=== PATIENT | female | born 1955 | race Caucasian/White ===

== ENCOUNTER 2016-09-22 08:15 | Emergency (ER) | payer OTHER ==
[~2016-09-22] VITALS: Ht 157.5 cm; Wt 73.0 kg
[~2016-09-22 08:15] MED LIST: atorvastin; levothyroxine; osteoporosis med
[2016-09-22 08:20] VITALS: Ht 157.5 cm; Wt 73.0 kg
[2016-09-22] MEDS ORDERED: CEPH-443 PO (08:40)
[2016-09-22] MEDS ORDERED: TRAM50TA2 PO (08:40)
--- NOTE | 2016-09-22 09:55 | ERD ---
ER Documentation Chief Complaint Date/Time DATE: 09/22/16 TIME: 09:53 Chief Complaint LEFT PALM PAIN RADIATING TO FOREARM SECONDARY TO WART HPI 61-year-old female presents with painful warts to the left hand that she has had for several years now. She states that she did try to see a work adjustment instructor for the shaved it off, it was only 1 treatment and the growth had returned. Over the last 2 days she states that the pain is radiating to her forearm, she also states that there has been some pus draining from it. No fevers or chills. Denies trauma. ROS All systems reviewed and are negative except as per history of present illness. Medications Home Meds Active Scripts Cephalexin* (Keflex*) 500 Mg Capsule, 500 MG PO QID for 7 Days, CAP Prov:KRYS BERUMEN PA-C 09/22/16 Tramadol HCl (Tramadol HCl) 50 Mg Tablet, 50 MG PO Q4 Y for PAIN, #20 TAB Prov:KRYS BERUMEN PA-C 09/22/16 Reported Medications [osteoporosis med] No Conflict Check 01/17/16 [levothyroxine] No Conflict Check 01/17/16 [atorvastin] No Conflict Check 01/17/16 Allergies Allergies: Coded Allergies: No Known Drug Allergy (Verified Allergy, Unknown, 01/17/16) PMhx/Soc History of Surgery: Yes (myomectomy) Anesthesia Reaction: No Hx Neurological Disorder: No Hx Respiratory Disorders: No Hx Psychiatric Problems: No Hx Miscellaneous Medical Probl: No Hx Alcohol Use: Yes Hx Substance Use: No Hx Tobacco Use: No Smoking Status: Never smoker Physical Exam Vitals Vital Signs Date Time Temp Pulse Resp B/P Pulse Ox O2 Delivery O2 Flow Rate FiO2 09/22/16 08:20 98.0 68 18 140/67 98 Physical Exam General: Well-developed, well-nourished. The patient appears in no acute distress. HEENT: Head is normocephalic, atraumatic. No scleral icterus. Neck: Supple. Nontender. Lungs: Clear to auscultation. Normal air movement. Heart: Regular rate and rhythm. S1 and S2 are normal. No murmurs, gallops, or rubs. Abdomen: Nondistended. Extremities: No clubbing or cyanosis. Moving extremities x 4. No weakness. Neurologic: Alert and oriented 3. No focal deficits. Normal speech and gait. Skin: 2 cm wart on the left ulnar aspect of the palm. There is some serosanguineous drainage. No fluctuance, no bony deformities. Capillary refill less than 2 seconds. Procedures/MDM 61-year-old female presents with a wart to her left palm, with associated pain. She states that there is been some drainage, and will be treated for soft tissue infection. I spoke with patient, she was informed that the wart will probably need multiple treatments from a work adjustment instructor including a shave removal. She will be given pain medication and was advised to recheck with a work adjustment instructor. Departure Diagnosis: Primary Impression: Wart Condition: Good Patient Instructions: Warts, Non-Genital Additional Instructions: Llame al doctor MAANA y yudelka florencio GURMEET PARA DENTRO DE 1-2 CAVAZOS.Dgale a la secretaria que nosotros le instruimos hacer esta gurmeet.Avise o llame si long condicin se empeora antes de la gurmeet. Regresa aqui si peor o no mejor. KRYS BERUMEN PA-C Sep 22, 2016 09:55
== END 2016-09-22 08:57 | disposition home or self-care (01) ==
LOC: FTE 08:15
DX: B07.9 Viral wart, unspecified (principal); E03.9 Hypothyroidism, unspecified
CPT/HCPCS: 99284

== ENCOUNTER 2016-10-09 06:08 | Day surgery (SDC) | payer OTHER ==
[~2016-10-09] VITALS: Ht 162.6 cm; Wt 73.1 kg
[2016-10-09] VITALS (10 sets, daily range): BP systolic 111–162; BP diastolic 53–72; PULSE 60–90; RESP 12–18; Ht 162.6 cm; Wt 73.1 kg
[~2016-10-09 06:08] MED LIST changes: +CEPH-443 PO; +TRAM50TA2 PO
[2016-10-09] MEDS ORDERED: CEFAZOLIN 1 GM/50 ML (PMX) 50 ML IVPB ONE (06:30)
[2016-10-09] MEDS ORDERED: SOD CHLORIDE 0.9% 1,000 ML IV SCH (06:30)
--- NOTE | 2016-10-09 07:20 | RADRPT ---
PROCEDURE: XR Chest AP portable CLINICAL INDICATION: Preop TECHNIQUE: An AP portable radiograph of the chest was submitted. COMPARISON: 04/23/2009 FINDINGS: Support Hardware: None Cardiovascular: The cardiovascular silhouette appears unremarkable the aorta appears somewhat tortuo us. Lung Marie: The lung marie appear clear with no nodule, alveolar infiltrate, or interstitial promi nence evident. Pleural Spaces: No pneumothorax or pleural effusion is identified. Osseous Structures: Mild diffuse degenerative spine changes are again noted. Soft Tissues: The soft tissues appear generous. IMPRESSION: 1. The foci of discoid atelectasis seen on the previous study have resolved and the lung marie and pleural spaces are now clear. 2. Aortic tortuosity. Physician Gia Date Time Electronically viewed and signed by Jessica Chavez Physician on 10/09/2016 07:19 /
[2016-10-09] MEDS ORDERED: ALEN70TA30 PO (07:22)
[2016-10-09] MEDS ORDERED: OMEGA 3 PO (07:22)
[2016-10-09] MEDS ORDERED: OMEP20CA16 PO (07:22)
[2016-10-09] MEDS ORDERED: LIDOCAINE 1%/EPI (MDV) 20 ML INJ ONE (08:02)
[2016-10-09] MEDS ORDERED: LIDOCAINE 1%/EPI 30 ML INJ INJ ONE (08:30)
[2016-10-09] MEDS ORDERED: MIDAZOLAM 1 MG/ML 2 ML INJ ONE (08:37)
[2016-10-09] MEDS ORDERED: PROPOFOL 20 ML ONE (08:37)
[2016-10-09] MEDS ORDERED: LIDOCAINE 1% (MDV) 20 ML INJ ONE (08:37)
[2016-10-09] MEDS ORDERED: ONDANSETRON 4 MG INJ ONE (08:47)
[2016-10-09] MEDS ORDERED: DEXAMETHASONE 4 MG/ML 1 ML INJ ONE (08:47)
[2016-10-09] MEDS ORDERED: CEFAZOLIN 1 GM INJ ONE (08:47)
[2016-10-09] MEDS ORDERED: FAMOTIDINE 20 MG INJ ONE (08:47)
[2016-10-09] MEDS ORDERED: KETOROLAC 30 MG INJ ONE (08:50)
[2016-10-09] MEDS ORDERED: FENTAnyl 50 MCG/ML VIAL ONE (08:52)
[2016-10-09] MEDS ORDERED: DIPHENHYDRAMINE 50 MG INJ IV PRN (09:30)
[2016-10-09] MEDS ORDERED: HYDROmorphONE (0.2 MG/ML) 10ML SYG IV PRN ×2 (09:30)
[2016-10-09] MEDS ORDERED: PROCHLORPERAZINE 10 MG INJ IV PRN (09:30)
[2016-10-09] MEDS ORDERED: MEPERIDINE 25 MG INJ IV PRN (09:30)
--- NOTE | 2016-10-09 09:45 | OPR ---
DATE OF OPERATION: 10/09/2016 PREOPERATIVE DIAGNOSIS: Exophytic mass at the palmar surface left hand at the base of the little finger. POSTOPERATIVE DIAGNOSIS: Exophytic mass at the palmar surface left hand at the base of the little finger. PROCEDURE: Excision of exophytic mass palmar surface of the left hand with local skin flap advancement closure. ANESTHESIA: General. ANESTHESIOLOGIST: Greg Hammonds DO SURGEON: Santana Omer MD ASSISTANT ACCOUNTING MANAGER: Dave Mchugh MD INDICATIONS FOR PROCEDURE: The patient is a 61-year-old female states she had the mass resected approximately 8 months ago by a grain and yeast plants supervisor; however, it has recurred and increased in size. 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 She was counseled as to the risks versus benefits of wide excision. She consented and was scheduled for surgery. DESCRIPTION OF PROCEDURE: The patient was brought to the operating theater, placed under general anesthesia. The left upper extremity was prepped and draped in the usual sterile fashion. Previously placed tourniquet was then inflated to a pressure of approximately 200 mmHg. An elliptical excision of the mass then took place using a 10 blade scalpel. The specimen was elevated, transected from the underlying subcutaneous fat pad removed and sent for pathologic analysis. The tourniquet was then let down and the residual bleeding was controlled with cautery. Due to the size of the defect, decision was made to mobilize proximal and distal skin flaps. This was done using sharp dissection. The flaps were then rotated together and the incision was closed with multiple 2-0 nylon sutures in interrupted fashion. The patient tolerated procedure well. Estimated blood loss was 5 mL. Total tourniquet time was 5 minutes. There were no complications. Dictated By: ASNTANA OMER MD TL/NTS Conf#: [id number] DID#: [id number] CC: JUAN JOSE MCHUGH MD;*EndCC* MTDD
--- NOTE | 2016-10-09 16:41 | RADRPT ---
Vent Rate: 70 bpm RR Interval: 0 msec TN Interval: 162 msec QRS Duration: 92 msec QT Interval: 420 msec QTC Interval: 453 msec P-R-T [place]: 39 - 8 - 37 degrees Normal sinus rhythm Normal ECG Electronically Signed By: Jose Miguel Dixon [id number]
== END 2016-10-09 11:19 | disposition home or self-care (01) ==
LOC: SDS 06:08
PROVIDERS: ATTEND Surgery Surgical Oncology
DX: C44.629 Squamous cell carcinoma of skin of left upper limb, including shoulder (principal); E03.9 Hypothyroidism, unspecified
CPT/HCPCS: 14040; 71010; 88307; 93005; J0690; J1100; J1170; J1885; J2250; J2405; J3010; Z7512; Z7610

== ENCOUNTER 2018-11-21 10:41 | Emergency (ER) | payer OTHER ==
[~2018-11-21] VITALS: Ht 160 cm; Wt 72.4 kg
[~2018-11-21 10:41] MED LIST changes: +ALEN70TA5 PO; -CEPH-443 PO; +OMEGA 3 PO; +OMEP20CA16 PO; -osteoporosis med
[2018-11-21 10:51] VITALS: Ht 160 cm; Wt 72.4 kg
[2018-11-21] MEDS ORDERED: KETOROLAC 60 MG INJ IM STA (11:11)
[2018-11-21] MEDS ORDERED: NAPR-985 PO (13:04)
[2018-11-21 13:18] VITALS: BP 122/69; PULSE 78; RESP 18
--- NOTE | 2018-11-21 13:58 | ERD ---
ER Documentation Chief Complaint Chief Complaint PELVIC PAIN & LOWER BACK PAIN X3 DAYS HPI 63-year-old female presenting with pelvic pain and lower back pain x3 days. Patient states she had this happen before that resolved on its own. Patient has worse pain with movement. Has not taken medications for symptoms. Medical history is hypercholesterolemia hypothyroidism. NKDA. Surgical history: molar removals. Social history denies ROS All systems reviewed and are negative except as per history of present illness. Medications Home Meds Active Scripts Naproxen* (Naprosyn*) 500 Mg Tablet, 500 MG PO BID PRN for PAIN AND/OR INFLAMMATION, #30 TAB Prov:YORDY GARCIAS PA-C 11/21/18 Tramadol HCl (Tramadol HCl) 50 Mg Tablet, 50 MG PO Q4 PRN for PAIN, #20 TAB Prov:KRYS BERUMEN PA-C 09/22/16 Reported Medications Omeprazole* (Omeprazole*) 20 Mg Capsule.dr, 20 MG PO DAILY, #30 CAP 10/09/16 [[place] 3] No Conflict Check, 1 CAP PO DAILY 10/09/16 Alendronate Sodium* (Fosamax*) 70 Mg Tablet, 70 MG PO Q7D, #4 TAB 10/09/16 [levothyroxine] No Conflict Check 01/17/16 [atorvastin] No Conflict Check 01/17/16 Allergies Allergies: Coded Allergies: No Known Drug Allergy (Verified Allergy, Unknown, 10/09/16) PMhx/Soc History of Surgery: Yes (UTERINE CONIZATION) Anesthesia Reaction: No Hx Neurological Disorder: No Hx Respiratory Disorders: Yes (PNA) Hx Cardiac Disorders: Yes (HLD) Hx Psychiatric Problems: No Hx Miscellaneous Medical Probl: Yes (thyroid problem,fatty liver,osteoporosis) Hx Alcohol Use: No Hx Substance Use: No Hx Tobacco Use: No Smoking Status: Never smoker FmHx Family History: No diabetes, No coronary disease, No other Physical Exam Vitals Vital Signs Date Temp Pulse Resp B/P (MAP) Pulse Ox O2 O2 Flow FiO2 Time Delivery Rate 11/21/18 98.1 78 18 122/69 98 Room Air 13:18 (86) 11/21/18 97.8 72 18 127/67 97 10:51 (87) Physical Exam GENERAL: The patient is well-appearing, well-nourished, in no acute distress CHEST: Clear to auscultation bilaterally. There are no rales, wheezes or rhonchi. HEART: Regular rate and rhythm. No murmurs, clicks, rubs or gallops. ABDOMEN: Normal active bowel sounds. No distention. No organomegaly. Tender to palpation the epigastric region with no rebound tenderness. BACK: No midline or flank tenderness. EXTREMITIES: Equal pulses bilaterally. There is no peripheral clubbing, cyanosis or edema. No focal swelling or erythema. Full range of motion. Grossly neurovascularly intact. NEUROLOGIC: Alert and oriented. Cranial nerves II through XII intact. Motor strength in all 4 extremities with 5 out of 5 strength. Sensation grossly intact. Normal speech and gait. Results 24 hrs Laboratory Tests Test 11/21/18 11:19 Bedside Urine pH (LAB) 6.0 Bedside Urine Protein (LAB) Negative Bedside Urine Glucose (UA) Negative Bedside Urine Ketones (LAB) Negative Bedside Urine Blood Negative Bedside Urine Nitrite (LAB) Negative Bedside Urine Leukocyte Esterase (L Negative Current Medications Medications Dose Sig/Romero Start Time Status Last (Trade) Ordered Route PRN Stop Time Admin Dose Reason Admin Ketorolac 60 mg ONCE STAT 11/21/18 DC 11/21/18 Tromethamine IM 11:11 11:20 (Toradol) 11/21/18 11:12 Procedures/MDM DIAGNOSTIC IMAGING REPORT Patient: BRANDI SALAS : 1955 Age: 63 Sex: F MR #: [id number] DOS: 11/21/18 1111 Ordering MD: MARLENE GARCIAS PA-C Location: [facility] Room/Bed: PROCEDURE: US Pelvis Non-OB with endovaginal scanning and Doppler CLINICAL INDICATION: Pain TECHNIQUE: Images were taken during real time trans pelvic and endovaginal interrogation. Color-flow and Doppler interrogation of the ovaries was performed. COMPARISON: None FINDINGS: Uterus: The uterus is retroverted and somewhat small in size measuring 4.9 cm in sagittal diameter and 4.0 x 2.7 cm in cross diameter. The fundal endometrial cavity is distended with anechoic fluid which results in the AP diameter of 5.7 mm. The endometrium itself is not thickened. Ovaries: The right ovary measures 1.8 x 1.4 x 1.3 cm and appears unremarkable. The left ovary measures 2.2 x 1.5 x 1.3 cm and appears unremarkable. Vascular flow is demonstrated in each ovary on Doppler. Adnexa: No adnexal mass is identified. Free intraperitoneal fluid: None visualized. IMPRESSION: 1. The uterus is retroverted and small in size with anechoic fluid seen within the fundal endometrial cavity which is distended to 5.7 mm. The endometrium itself is not thickened. In a post menopausal patient, endometrial fluid could be related to cervical stenosis. If cervical stenosis is identified clinically, concern would be raised for the possibility of endometrial or cervical carcinoma which is not apparent on this study. 2. Normal appearing ovaries with each demonstrating vascular flow on Doppler. 3. No adnexal mass or free fluid is identified. MDM: 63-year-old female presenting with pelvic pain. Patient's ultrasound shows some collection of fluid noted within the uterus. Patient is stable and can follow-up with [facility]LECTRICAL AND INSTRUMENT ENGINEER and does not warrant any emergent consultation at this time. I have low suspicion for PID. I have low suspicion for acute abdominal emergency. I have low suspicion for infectious process. Patient is told to follow-up with ELECTRICAL AND INSTRUMENT ENGINEER and to return if symptoms change or worsen. All questions answered at discharge Departure Diagnosis: Primary Impression: Acute pain in female pelvis Condition: Stable Patient Instructions: Pelvic Pain, Unknown Cause Referrals: [facility]STRUMENT [facility]INE[facility] [place] [address] [facility] [address] [place], [place] [id number] OFFICE FAX DR.ABUSLEME IZZY [address] [place], [place] [phone] [facility] [address] [place], [place] [phone] SHE HERMAN [address] [facility], [address] [address] [address] B[address] [address] [place], [place] [phone] [facility] [address] [place], [place] [address] [address] [facility] [id number] - [address] MOSES, [place] [address], [facility] [id number] LAMBERT, [place] [address] [facility]. [address], [facility] [address] [address], [facility] [address] [place], [place] [phone] Additional Instructions: FOLLOW UP WITH YOUR PRIMARY CARE PHYSICIAN TOMORROW.Return to this facility if you are not improving as expected. YORDY GARCIAS PA-C Nov 21, 2018 13:58
== END 2018-11-21 13:18 | disposition home or self-care (01) ==
LOC: FTE 10:41
DX: R10.2 Pelvic and perineal pain (principal)
CPT/HCPCS: 76830; 76856; 81003; 96372; J1885; Z7502